=== PATIENT | male | born 1955 | race Caucasian/White ===

== ENCOUNTER 2021-09-21 10:13 | Outpatient (CLI) | payer BC ==
[2021-09-21 22:01] LABS: SARS-CoV-2 PCR by NAA Not Detected (NotDetected)
== END 2021-09-21 10:14 | disposition home or self-care (01) ==
LOC: CSHLAB 10:13
PROVIDERS: ATTEND Internal Medicine Gastroenterology
DX: Z20.822 Contact with and (suspected) exposure to COVID-19 (principal); K74.60 Unspecified cirrhosis of liver
CPT/HCPCS: U0003; U0005

== ENCOUNTER 2021-09-24 06:53 | Day surgery (SDC) | payer BC ==
[2021-09-22 15:15] VITALS: BMI 29.2
[2021-09-24] MEDS ORDERED: Lidocaine 1% MPF 2 ML VIAL ONE (07:38)
[2021-09-24] MEDS ORDERED: PROPOFOL 20 ML ONE ×2 (09:36→09:42)
[2021-09-24] MEDS ORDERED: Lidocaine 1% PF 5 ML VIAL ONE (09:42)
== END 2021-09-24 11:00 | disposition home or self-care (01) ==
LOC: CSHSDC 06:53
PROVIDERS: ATTEND Internal Medicine Gastroenterology
PROC: 06L38CZ Occlusion of Esophageal Vein with Extraluminal Device, Via Natural or Artificial Opening Endoscopic (ICD-10-PCS; principal; 2021-09-24)
PROC: 0DB68ZX Excision of Stomach, Via Natural or Artificial Opening Endoscopic, Diagnostic (ICD-10-PCS; principal; 2021-09-24)
DX: K31.7 Polyp of stomach and duodenum (principal); K74.60 Unspecified cirrhosis of liver; I85.10 Secondary esophageal varices without bleeding; K76.6 Portal hypertension; K31.89 Other diseases of stomach and duodenum; I10 Essential (primary) hypertension; K21.9 Gastro-esophageal reflux disease without esophagitis; I25.10 Atherosclerotic heart disease of native coronary artery without angina pectoris; Z95.5 Presence of coronary angioplasty implant and graft; D64.9 Anemia, unspecified; D61.818 Other pancytopenia; E66.9 Obesity, unspecified
CPT/HCPCS: 88305; J2704